=== PATIENT | male | born 1950 | race Caucasian/White ===

== ENCOUNTER 2018-01-08 16:20 | Inpatient (IN) | payer OTHER ==
[~2018-01-08] VITALS: Ht 175.3 cm; Wt 96.8 kg
[2018-01-08 17:04] LABS: BASOPHILS # (AUTO) 0.1 (0.0-0.1); BASOPHILS % 1.1 % (0.0-1.0); EOSINOPHILS # (AUTO) 0.1 (0.0-0.4); EOSINOPHILS % 2.1 % (0.0-6.0); HEMATOCRIT 38.3 % (38.2-49.6); HEMOGLOBIN 12.7 g/dL (14.0-18.0); LYMPHOCYTES # (AUTO) 1.3 (1.0-3.2); LYMPHOCYTES % 27.8 % (18.0-39.1); MEAN CORPUSCULAR HEMOGLOBIN 32.2 pg (28-32); MEAN CORPUSCULAR HGB CONC 33.2 g/dL (31-35); MEAN CORPUSCULAR VOLUME 97.2 fL (81-99); MONOCYTES # (AUTO) 0.3 (0.2-0.8); MONOCYTES % 6.1 % (4.4-11.3); NEUTROPHILS % 62.5 % (38.7-80.0); PLATELET COUNT 233 x10e3/uL (140-360); RED BLOOD COUNT 3.94 x10e6/uL (4.3-5.7); RED CELL DISTRIBUTION WIDTH 12.7 % (11.7-14.4)
[2018-01-08 17:10] LABS: INR 1.03; PARTIAL THROMBOPLASTIN TIME 26.2 seconds (23.8-35.5); PROTHROMBIN TIME 12.7 seconds (11.9-14.5)
[2018-01-08 17:21] LABS: ALBUMIN 3.6 g/dL (3.5-5.0); ANION GAP 13.9 mmol/L (8-16); CALCIUM 9.4 mg/dL (8.4-10.2); CREATININE, SERUM 1.66 mg/dL (0.72-1.25); POTASSIUM 3.9 mmol/L (3.5-5.1)
[2018-01-08 17:26] LABS: BILIRUBIN,URINE NEGATIVE (NEGATIVE); COLOR,URINE RED (YELLOW); KETONES,URINE TRACE (NEGATIVE); LEUKOCYTE ESTERASE ,URINE NEGATIVE (NEGATIVE); NITRITE,URINE NEGATIVE (NEGATIVE); URINE UROBILINOGEN 0.2 mg/dL (0.2 - 1)
[2018-01-08 17:27] LABS: CLARITY,URINE TURBID (CLEAR); PROTEIN,URINE DIPSTICK 2+ (NEGATIVE)
[2018-01-08 17:53] LABS: RBC,URINE >50 /HPF (0-5)
[2018-01-08] MEDS ORDERED: SODIUM CHLORIDE FLUSH 10 ML SYR INJ PRN (21:45)
[2018-01-08] MEDS ORDERED: DEXTROSE 50% SYRINGE 50 ML IV PRN (21:45)
--- NOTE | 2018-01-08 23:04 | Diagnostic Imaging Report ---
EXAM: CT ABDOMEN/PELVIS WO DATE: 01/08/2018 9:41 PM INDICATION: \S\hematuria, evaluate for ureterolithiasis \S\[id number] \S\2210 \S\Y COMPARISON: None TECHNIQUE: The abdomen and pelvis were scanned using a multidetector helical scanner. Coronal and sagittal reformations were obtained. Routine protocol performed. IV Contrast: 0 FINDINGS: Lack of IV contrast decreases sensitivity in evaluating abdominal and pelvic organs. LOWER THORAX: No consolidations LIVER/BILIARY: Liver dome is incompletely imaged. Hepatic steatosis . GALLBLADDER: Unremarkable SPLEEN: Unremarkable PANCREAS: Unremarkable ADRENALS: 8 mm right adrenal myelolipoma. Nodularity of bilateral adrenal glands, likely hyperplasia/underlying adenomas (for example 1.1 cm nodular area on the left, 4 HU, image 30). KIDNEYS: No hydronephrosis or stones. There is a 10 mm exophytic left interpolar renal lesion with peripheral thick calcification. GI TRACT: No distention, wall thickening or evidence of obstruction. Normal appendix. VESSELS: Severe atherosclerotic changes with infrarenal abdominal aortic aneurysm, maximal dimension 3.4 cm, extending into the common iliac arteries (right 1.9 cm, left 1.7 cm) PERITONEUM/RETROPERITONEUM: No free air or fluid LYMPH NODES: No lymphadenopathy REPRODUCTIVE ORGANS/BLADDER: Bladder is decompressed with at least 3 rounded high attenuation lesions/areas measuring 2.8 cm posteriorly, 2.6 cm posteriorly, and 1.3 cm inferiorly. Normal prostate size. SOFT TISSUES: Tiny fat-containing umbilical hernia. BONES: Multilevel degenerative changes with prior lower lumbar decompression. IMPRESSION: 1. Findings most suspicious for multifocal bladder cancer/transitional cell carcinoma. Recommend direct visualization. 2. Indeterminate left interpolar renal lesion. Recommend nonemergent follow-up CT renal mass protocol. Signed by: Dr Connie Thacker MD on 01/08/2018 11:01 PM
[2018-01-09] VITALS: BP 139/65
[2018-01-09 04:00] VITALS: BP 123/58
[2018-01-09 06:57] LABS: BASOPHILS # (AUTO) 0.1 (0.0-0.1); BASOPHILS % 0.7 % (0.0-1.0); EOSINOPHILS # (AUTO) 0.2 (0.0-0.4); EOSINOPHILS % 1.9 % (0.0-6.0); HEMATOCRIT 34.9 % (38.2-49.6); HEMOGLOBIN 11.7 g/dL (14.0-18.0); LYMPHOCYTES # (AUTO) 1.6 (1.0-3.2); LYMPHOCYTES % 19.1 % (18.0-39.1); MEAN CORPUSCULAR HEMOGLOBIN 32.1 pg (28-32); MEAN CORPUSCULAR HGB CONC 33.5 g/dL (31-35); MEAN CORPUSCULAR VOLUME 95.6 fL (81-99); MONOCYTES # (AUTO) 0.7 (0.2-0.8); MONOCYTES % 7.7 % (4.4-11.3); NEUTROPHILS % 69.9 % (38.7-80.0); PLATELET COUNT 230 x10e3/uL (140-360); RED BLOOD COUNT 3.65 x10e6/uL (4.3-5.7); RED CELL DISTRIBUTION WIDTH 12.7 % (11.7-14.4)
[2018-01-09 07:27] LABS: ANION GAP 13.9 mmol/L (8-16); CALCIUM 9.2 mg/dL (8.4-10.2); CREATININE, SERUM 1.72 mg/dL (0.72-1.25); POTASSIUM 3.9 mmol/L (3.5-5.1)
[2018-01-09 08:00] VITALS: BP 107/62
[2018-01-09] MEDS ORDERED: ALBUTEROL/IPRATROPIUM 3 ML NEB NEB PRN (08:00)
[2018-01-09] MEDS ORDERED: INSULIN DETEMIR 100 UNIT/ML PEN SQ ONE (08:30)
[2018-01-09] MEDS ORDERED: MULTIVITAMINS- 12 INJECTION 10 ML, FOLIC ACID MDV 5 MG, THIAMINE HCL INJ 100 MG in SODI... IV ONE (09:00)
--- NOTE | 2018-01-09 09:01 | History and Physical ---
PCP: Dr. Deng Wilcox PRODUCTION SAMPLER: Dr. Jesus Davis CHIEF COMPLAINT: Gross hematuria. HISTORY OF PRESENT ILLNESS: A 67-year-old male basically came to the emergency room because of profound hematuria. Zamora catheter is placed in now. The patient still has blood-tinged urine. CT scan showed possible urinary bladder cancer. Patient is quite little confused at this time. At baseline, the patient was a smoker, quit approximately a few months ago along with alcohol, quit approximately 2 weeks ago. The patient does seem to drink quite significantly. Patient is otherwise stable at this time. He is on antibiotics initiated this morning. The patient is otherwise stable. PAST MEDICAL HISTORY: Including alcoholism, hypertension, smoker, COPD, chronic kidney disease, diabetes. PAST SURGICAL HISTORY: Not available. SOCIAL HISTORY: Patient is a smoker and an alcoholic. He seemed to be confused now, and not much more history regarding social problem. PHYSICAL EXAMINATION: VITAL SIGNS: Temperature is 98, blood pressure 123/58, pulse rate is 92, respirations 20. GENERAL: The patient is confused. He is moving all extremities. There is no focal deficit. HEENT: Normocephalic, atraumatic. Anicteric. Poor dentition. NECK: Supple. No JVD. PULMONARY: Diminished breath sounds with some rhonchi. CARDIOVASCULAR: S1 and S2. Regular rate and rhythm. ABDOMEN: Soft, non-distention. : Zamora catheter in place. EXTREMITIES: No cyanosis or edema. NEUROLOGIC: No gross focal deficit, but does seem to be confused. LABORATORY: Sodium is 140, potassium 3.9, chloride 106, bicarb 24, BUN 40, creatinine 1.7, glucose 364. WBC is 8.5, hemoglobin 11.7, hematocrit 35, platelets 230,000. PT, INR is 12.7 and 1.03. IMPRESSION: 1. Gross hematuria. 2. Possible urinary bladder cancer. 3. Smoker, alcoholism. 4. Baseline diabetes, high blood sugar. 5. Chronic kidney disease. 6. Hypertension. PLAN: Rocephin 1 g q.12. Consultation with Dr. Jesus Davis, possible cystoscopy. Insulin sliding scale coverage, blood pressure control, DuoNeb, DT prevention, and banana bag. IV fluid support. Job#: [id number]
[2018-01-09] MEDS: FAMOTIDINE 20 MG/2 ML VIAL IV SCH ×2 (10:06→17:05)
[2018-01-09] MEDS: THIAMINE HCL 100 MG TAB PO SCH (10:06)
[2018-01-09] MEDS: CEFTRIAXONE SOD 1 GM VIAL IV SCH ×2 (10:06→20:57)
[2018-01-09] MEDS: CYANOCOBALAMIN INJ 1,000 MCG/ML VIAL IM SCH (10:06)
[2018-01-09] MEDS: FOLIC ACID 1 MG TAB PO SCH (10:06)
[2018-01-09] MEDS: INSULIN REGULAR, HUMAN 100 UNIT/1 ML 3ML VIAL SQ SCH ×4 (10:11→22:00)
[2018-01-09] MEDS ORDERED: FLOMAX0.4 MG PO (11:34)
[2018-01-09] MEDS ORDERED: LEVOTHYROXINE50 MCG PO (11:34)
[2018-01-09] MEDS ORDERED: GLIMEPIRIDE2 MG PO (11:34)
[2018-01-09] MEDS ORDERED: LOVASTATIN40 MG PO (11:34)
[2018-01-09] MEDS ORDERED: FENOFIBRATE145 MG PO (11:34)
[2018-01-09] MEDS ORDERED: FISH OIL 1,2001 EACH PO (11:34)
[2018-01-09] MEDS ORDERED: LOSARTAN-HCTZ1 EAC1 PO (11:34)
[2018-01-09] MEDS ORDERED: MULTI-VITAMIN1 EACH PO (11:34)
[2018-01-09] MEDS ORDERED: FERROUS SULFAT325 MG PO (11:34)
[2018-01-09] MEDS ORDERED: CYMBALTA30 MG PO (11:34)
[2018-01-09] MEDS ORDERED: ASPIRIN81 MG PO (11:34)
[2018-01-09 12:31] VITALS: BP 153/69
[2018-01-09 16:00] VITALS: BP 118/58
[2018-01-09] MEDS: MORPHINE SULFATE 2 MG/ML SYR IV PRN (16:40)
[2018-01-09 20:00] VITALS: BP 122/59
[2018-01-09] MEDS: INSULIN DETEMIR 100 UNIT/ML PEN SQ SCH (22:00)
[2018-01-10] VITALS (7 sets, daily range): BP systolic 111–147; BP diastolic 56–83
[2018-01-10 07:44] LABS: BASOPHILS # (AUTO) 0.1 (0.0-0.1); BASOPHILS % 1.1 % (0.0-1.0); EOSINOPHILS # (AUTO) 0.2 (0.0-0.4); EOSINOPHILS % 2.6 % (0.0-6.0); HEMOGLOBIN 11.2 g/dL (14.0-18.0); LYMPHOCYTES # (AUTO) 1.9 (1.0-3.2); MEAN CORPUSCULAR HGB CONC 32.9 g/dL (31-35); MEAN CORPUSCULAR VOLUME 97.1 fL (81-99); MONOCYTES # (AUTO) 0.7 (0.2-0.8); MONOCYTES % 9.9 % (4.4-11.3); NEUTROPHILS # (AUTO) 4.4 (2.1-6.9); NEUTROPHILS % 59.7 % (38.7-80.0); PLATELET COUNT 208 x10e3/uL (140-360); RED CELL DISTRIBUTION WIDTH 13.1 % (11.7-14.4)
[2018-01-10 08:07] LABS: ANION GAP 15.9 mmol/L (8-16); CALCIUM 8.9 mg/dL (8.4-10.2); CREATININE, SERUM 1.9 mg/dL (0.72-1.25); POTASSIUM 3.9 mmol/L (3.5-5.1)
[2018-01-10] MEDS: INSULIN REGULAR, HUMAN 100 UNIT/1 ML 3ML VIAL SQ SCH ×4 (08:37→20:49)
[2018-01-10] MEDS: FOLIC ACID 1 MG TAB PO SCH (08:37)
[2018-01-10] MEDS: CYANOCOBALAMIN INJ 1,000 MCG/ML VIAL IM SCH (08:37)
[2018-01-10] MEDS: THIAMINE HCL 100 MG TAB PO SCH (08:37)
[2018-01-10] MEDS: FAMOTIDINE 20 MG/2 ML VIAL IV SCH ×2 (08:37→16:48)
[2018-01-10] MEDS: CEFTRIAXONE SOD 1 GM VIAL IV SCH ×2 (08:37→20:35)
--- NOTE | 2018-01-10 09:17 | Consultation ---
DATE OF CONSULTATION: January 09, 2018 UROLOGY CONSULTATION CONSULTATION CALLED BY: Dr. Vang CHIEF UROLOGICAL COMPLAINT AND REASON FOR CONSULTATION: Bladder mass, gross hematuria. HISTORY OF PRESENT ILLNESS: Mr. Aldana is a 67-year-old male who was in his normal state of health until 1 day prior to admission when he began experiencing profuse gross hematuria. Has been seeing Dr. Becker for chronic renal failure. Denied dysuria. PAST MEDICAL HISTORY: As above. Diabetes mellitus, chronic renal failure. MEDICATIONS: Please see MAR. ALLERGIES: NKDA. SOCIAL HISTORY: Denies smoking, no drinking. FAMILY HISTORY: Denied urologic stones or malignancies. REVIEW OF SYSTEMS: Noncontributory other than problems mentioned above for 12 organ systems. PHYSICAL EXAMINATION: GENERAL: Elderly male, in no acute distress. VITAL SIGNS: Temperature 96.0, pulse 92, respirations 16, blood pressure 123/68. HEENT: Sclerae anicteric. NECK: Supple. BACK: Without costovertebral angle tenderness bilaterally. ABDOMEN: Soft. It is nontender, it is nondistended. There is no palpable mass. No palpable hernias. No palpable inguinal lymphadenopathy. : Normal male external genitalia. EXTREMITIES: Without edema. NEURO: Moves all 4 extremities. PSYCH: Alert. Mood appropriate. SKIN: Intact. Normal color. PERTINENT LABORATORY DATA: CT scan revealing 8 mm right adrenal myelolipoma, a 10 mm left exophytic calcification and lesion, abdominal aortic aneurysm of 3.4 cm, a bladder mass of 2.8 cm, a bladder mass of 2.6 cm, and the bladder mass of 1.3 cm. Sodium 140, potassium 3.9, chloride 106, bicarb 24, BUN 40, creatinine 1.72, glucose 364. Hemoglobin 12, hematocrit 38, platelet count 233,000, white cell count 4740. Urinalysis greater than 50 reds, 2+ protein, 3+ glucose. IMPRESSION: 1. Glycosuria. 2. Proteinuria. 3. Gross hematuria. 4. Bladder masses. 5. Renal mass. 6. Abdominal aortic aneurysm. 7. Right adrenal mass. 8. Chronic renal failure. PLAN: The patient is on continuous irrigation, will continue this. Will make sure there is no evidence of infection. Patient will need a cystoscopy electively. As the patient had been taking blood thinning agents at home, will prefer to wait at least a few days to give some of the platelets a chance to . Thank you for allowing me to participate in the care of your patient. Will be happy to follow along with you. Job#: [id number] cc:ADALID VANG MD
[2018-01-10] MEDS: INSULIN DETEMIR 100 UNIT/ML PEN SQ SCH (20:49)
[2018-01-11] VITALS (7 sets, daily range): BP systolic 113–159; BP diastolic 58–72
[2018-01-11] MEDS: ONDANSETRON HCL INJ 2 MG/ML VIAL IV PRN ×2 (01:18→15:06)
[2018-01-11] MEDS: MORPHINE SULFATE 2 MG/ML SYR IV PRN ×2 (01:19→15:06)
[2018-01-11] MEDS: FAMOTIDINE 20 MG/2 ML VIAL IV SCH ×2 (08:14→16:45)
[2018-01-11] MEDS: CEFTRIAXONE SOD 1 GM VIAL IV SCH ×2 (08:14→21:00)
[2018-01-11] MEDS: CYANOCOBALAMIN INJ 1,000 MCG/ML VIAL IM SCH (08:14)
[2018-01-11] MEDS: INSULIN REGULAR, HUMAN 100 UNIT/1 ML 3ML VIAL SQ SCH ×4 (08:14→21:30)
[2018-01-11] MEDS: THIAMINE HCL 100 MG TAB PO SCH (15:06)
[2018-01-11] MEDS: FOLIC ACID 1 MG TAB PO SCH (15:06)
[2018-01-11] MEDS: INSULIN DETEMIR 100 UNIT/ML PEN SQ SCH (21:30)
[2018-01-12] VITALS (7 sets, daily range): BP systolic 116–151; BP diastolic 57–70
[2018-01-12 07:29] LABS: BASOPHILS # (AUTO) 0.1 (0.0-0.1); BASOPHILS % 1.2 % (0.0-1.0); EOSINOPHILS # (AUTO) 0.2 (0.0-0.4); EOSINOPHILS % 3.1 % (0.0-6.0); HEMATOCRIT 33.4 % (38.2-49.6); HEMOGLOBIN 11.2 g/dL (14.0-18.0); LYMPHOCYTES # (AUTO) 1.2 (1.0-3.2); MEAN CORPUSCULAR HEMOGLOBIN 32.3 pg (28-32); MEAN CORPUSCULAR HGB CONC 33.5 g/dL (31-35); MEAN CORPUSCULAR VOLUME 96.3 fL (81-99); MONOCYTES # (AUTO) 0.5 (0.2-0.8); MONOCYTES % 9.2 % (4.4-11.3); NEUTROPHILS # (AUTO) 3.2 (2.1-6.9); NEUTROPHILS % 62.1 % (38.7-80.0); PLATELET COUNT 218 x10e3/uL (140-360); RED BLOOD COUNT 3.47 x10e6/uL (4.3-5.7); RED CELL DISTRIBUTION WIDTH 12.6 % (11.7-14.4)
[2018-01-12] MEDS: INSULIN REGULAR, HUMAN 100 UNIT/1 ML 3ML VIAL SQ SCH ×4 (07:30→21:22)
[2018-01-12 07:41] LABS: ANION GAP 14.9 mmol/L (8-16); CALCIUM 9.4 mg/dL (8.4-10.2); CREATININE, SERUM 1.92 mg/dL (0.72-1.25); POTASSIUM 3.9 mmol/L (3.5-5.1)
[2018-01-12] MEDS: CEFTRIAXONE SOD 1 GM VIAL IV SCH ×2 (08:53→21:22)
[2018-01-12] MEDS: FAMOTIDINE 20 MG/2 ML VIAL IV SCH ×2 (08:53→16:08)
[2018-01-12] MEDS: FOLIC ACID 1 MG TAB PO SCH (09:00)
[2018-01-12] MEDS: THIAMINE HCL 100 MG TAB PO SCH (09:00)
[2018-01-12] MEDS: ONDANSETRON HCL INJ 2 MG/ML VIAL IV PRN (10:12)
[2018-01-12] MEDS: MORPHINE SULFATE 2 MG/ML SYR IV PRN (10:13)
[2018-01-12] MEDS ORDERED: PROPOFOL IV EMULSION 10 MG/ML 20 ML VIAL ONE (13:34)
[2018-01-12] MEDS ORDERED: SEVOFLURANE INHAL SOLN 250 ML PEN BTL ONE (13:34)
[2018-01-12] MEDS ORDERED: LIDOCAINE HCL 2% LOCAL INJ 5 ML SDV VIAL INJ ONE (13:34)
[2018-01-12] MEDS ORDERED: ONDANSETRON HCL INJ 2 MG/ML VIAL ONE (13:34)
[2018-01-12] MEDS ORDERED: DEXAMETHASONE SOD PHOS INJ 4 MG/ML VIAL ONE (13:34)
[2018-01-12] MEDS ORDERED: FENTANYL CITRATE/PF 100MCG/2 ML INJ ONE ×2 (14:43→18:44)
[2018-01-12] MEDS ORDERED: MIDAZOLAM HCL 2 MG/2 ML VIAL ONE (14:43)
[2018-01-12] MEDS ORDERED: BELLADONNA/OPIUM 60 MG SUPP PR ONE (17:03)
[2018-01-12] MEDS ORDERED: IOPAMIDOL 610MG/1ML 300 MG/ML VIAL IV ONE (17:04)
[2018-01-12] MEDS ORDERED: PHENAZOPYRIDINE HCL 100 MG TAB PO ONE (18:30)
[2018-01-12] MEDS: INSULIN DETEMIR 100 UNIT/ML PEN SQ SCH (21:22)
[2018-01-13] VITALS: BP 112/57
[2018-01-13 04:00] VITALS: BP 142/61
[2018-01-13 07:20] LABS: BASOPHILS # (AUTO) 0.1 (0.0-0.1); BASOPHILS % 0.9 % (0.0-1.0); EOSINOPHILS % 0.1 % (0.0-6.0); HEMATOCRIT 33.9 % (38.2-49.6); LYMPHOCYTES # (AUTO) 1.1 (1.0-3.2); LYMPHOCYTES % 15.6 % (18.0-39.1); MEAN CORPUSCULAR HGB CONC 32.4 g/dL (31-35); MEAN CORPUSCULAR VOLUME 98.5 fL (81-99); MONOCYTES # (AUTO) 0.4 (0.2-0.8); NEUTROPHILS # (AUTO) 5.3 (2.1-6.9); NEUTROPHILS % 77.1 % (38.7-80.0); PLATELET COUNT 238 x10e3/uL (140-360); RED BLOOD COUNT 3.44 x10e6/uL (4.3-5.7); RED CELL DISTRIBUTION WIDTH 12.7 % (11.7-14.4)
[2018-01-13 07:41] VITALS: BP 119/58
[2018-01-13 07:50] LABS: ANION GAP 13.3 mmol/L (8-16); CALCIUM 8.8 mg/dL (8.4-10.2); CREATININE, SERUM 1.94 mg/dL (0.72-1.25); POTASSIUM 4.3 mmol/L (3.5-5.1)
[2018-01-13] MEDS: MORPHINE SULFATE 2 MG/ML SYR IV PRN ×3 (08:59→20:31)
[2018-01-13] MEDS: FAMOTIDINE 20 MG/2 ML VIAL IV SCH ×2 (09:08→18:01)
[2018-01-13] MEDS: INSULIN REGULAR, HUMAN 100 UNIT/1 ML 3ML VIAL SQ SCH ×4 (09:08→21:15)
[2018-01-13] MEDS: CEFTRIAXONE SOD 1 GM VIAL IV SCH ×2 (09:08→21:34)
[2018-01-13] MEDS: THIAMINE HCL 100 MG TAB PO SCH (09:08)
[2018-01-13] MEDS: FOLIC ACID 1 MG TAB PO SCH (09:08)
[2018-01-13 12:00] VITALS: BP 151/90
[2018-01-13] MEDS: TRAMADOL HCL 50 MG TAB PO PRN ×2 (12:31→23:57)
[2018-01-13 15:51] VITALS: BP 138/65
[2018-01-13 20:00] VITALS: BP 188/77
[2018-01-13] MEDS: INSULIN DETEMIR 100 UNIT/ML PEN SQ SCH (21:15)
[2018-01-14] VITALS (8 sets, daily range): BP systolic 116–158; BP diastolic 60–68
[2018-01-14] MEDS: MORPHINE SULFATE 2 MG/ML SYR IV PRN ×4 (03:37→23:23)
[2018-01-14] MEDS: TRAMADOL HCL 50 MG TAB PO PRN ×2 (08:10→20:59)
[2018-01-14] MEDS: FOLIC ACID 1 MG TAB PO SCH (08:34)
[2018-01-14] MEDS: CEFTRIAXONE SOD 1 GM VIAL IV SCH ×2 (08:34→20:59)
[2018-01-14] MEDS: FAMOTIDINE 20 MG/2 ML VIAL IV SCH ×2 (08:34→16:28)
[2018-01-14] MEDS: INSULIN REGULAR, HUMAN 100 UNIT/1 ML 3ML VIAL SQ SCH ×4 (08:35→21:02)
[2018-01-14] MEDS: POLYETHYLENE GLYCOL 3350 17 GM PACK PO SCH (08:35)
[2018-01-14] MEDS: THIAMINE HCL 100 MG TAB PO SCH (08:35)
[2018-01-14] MEDS: INSULIN DETEMIR 100 UNIT/ML PEN SQ SCH (21:02)
[2018-01-15] VITALS (9 sets, daily range): BP systolic 114–161; BP diastolic 60–74
[2018-01-15] MEDS: MORPHINE SULFATE 2 MG/ML SYR IV PRN ×5 (04:12→21:30)
[2018-01-15 07:13] LABS: BASOPHILS # (AUTO) 0.1 (0.0-0.1); BASOPHILS % 0.8 % (0.0-1.0); EOSINOPHILS # (AUTO) 0.2 (0.0-0.4); EOSINOPHILS % 2.8 % (0.0-6.0); HEMATOCRIT 33.9 % (38.2-49.6); HEMOGLOBIN 11.3 g/dL (14.0-18.0); LYMPHOCYTES # (AUTO) 1.2 (1.0-3.2); LYMPHOCYTES % 20.2 % (18.0-39.1); MEAN CORPUSCULAR HEMOGLOBIN 32.4 pg (28-32); MEAN CORPUSCULAR HGB CONC 33.3 g/dL (31-35); MEAN CORPUSCULAR VOLUME 97.1 fL (81-99); MONOCYTES # (AUTO) 0.5 (0.2-0.8); MONOCYTES % 8.6 % (4.4-11.3); NEUTROPHILS # (AUTO) 4.1 (2.1-6.9); NEUTROPHILS % 67.3 % (38.7-80.0); PLATELET COUNT 243 x10e3/uL (140-360); RED BLOOD COUNT 3.49 x10e6/uL (4.3-5.7); RED CELL DISTRIBUTION WIDTH 12.6 % (11.7-14.4)
[2018-01-15] MEDS: INSULIN REGULAR, HUMAN 100 UNIT/1 ML 3ML VIAL SQ SCH ×4 (07:30→21:00)
[2018-01-15 07:51] LABS: ANION GAP 12.7 mmol/L (8-16); CALCIUM 8.9 mg/dL (8.4-10.2); CREATININE, SERUM 1.76 mg/dL (0.72-1.25); POTASSIUM 3.7 mmol/L (3.5-5.1)
[2018-01-15] MEDS: POLYETHYLENE GLYCOL 3350 17 GM PACK PO SCH (09:26)
[2018-01-15] MEDS: CEFTRIAXONE SOD 1 GM VIAL IV SCH ×2 (09:26→21:14)
[2018-01-15] MEDS: THIAMINE HCL 100 MG TAB PO SCH (09:26)
[2018-01-15] MEDS: FAMOTIDINE 20 MG/2 ML VIAL IV SCH ×2 (09:26→16:45)
[2018-01-15] MEDS: FOLIC ACID 1 MG TAB PO SCH (09:26)
[2018-01-15] MEDS: CHLORDIAZEPOXIDE HCL 10 MG CAP PO PRN ×2 (13:15→17:33)
[2018-01-15] MEDS: TRAMADOL HCL 50 MG TAB PO PRN (16:45)
[2018-01-15] MEDS: INSULIN DETEMIR 100 UNIT/ML PEN SQ SCH (21:14)
[2018-01-16] VITALS (7 sets, daily range): BP systolic 126–164; BP diastolic 60–70
[2018-01-16] MEDS: MORPHINE SULFATE 2 MG/ML SYR IV PRN (01:29)
[2018-01-16] MEDS: INSULIN REGULAR, HUMAN 100 UNIT/1 ML 3ML VIAL SQ SCH ×4 (08:25→22:11)
[2018-01-16] MEDS: FOLIC ACID 1 MG TAB PO SCH (08:25)
[2018-01-16] MEDS: FAMOTIDINE 20 MG/2 ML VIAL IV SCH ×2 (08:25→16:52)
[2018-01-16] MEDS: THIAMINE HCL 100 MG TAB PO SCH (08:25)
[2018-01-16] MEDS: CEFTRIAXONE SOD 1 GM VIAL IV SCH ×3 (08:25→22:00)
[2018-01-16] MEDS: POLYETHYLENE GLYCOL 3350 17 GM PACK PO SCH (08:25)
[2018-01-16] MEDS ORDERED: BELLADONNA/OPIUM 60 MG SUPP PR PRN (08:45)
[2018-01-16] MEDS: OXYBUTYNIN CHLORIDE 5 MG TAB PO SCH ×3 (09:03→22:00)
[2018-01-16] MEDS: INSULIN DETEMIR 100 UNIT/ML PEN SQ SCH (22:11)
[2018-01-17] VITALS: BP 157/72
[2018-01-17 01:20] VITALS: BP 157/72
[2018-01-17 04:00] VITALS: BP 151/64
[2018-01-17] MEDS: INSULIN REGULAR, HUMAN 100 UNIT/1 ML 3ML VIAL SQ SCH ×3 (07:30→16:30)
[2018-01-17 08:00] VITALS: BP 135/60
[2018-01-17] MEDS: POLYETHYLENE GLYCOL 3350 17 GM PACK PO SCH (09:39)
[2018-01-17] MEDS: OXYBUTYNIN CHLORIDE 5 MG TAB PO SCH ×2 (09:39→16:00)
[2018-01-17] MEDS: CEFUROXIME AXETIL 250 MG TAB PO SCH ×2 (09:39→16:28)
[2018-01-17] MEDS: FOLIC ACID 1 MG TAB PO SCH (09:39)
[2018-01-17] MEDS: THIAMINE HCL 100 MG TAB PO SCH (09:39)
[2018-01-17 12:10] VITALS: BP 169/76
[2018-01-17] MEDS ORDERED: TYLENOL WITH C1 EACH PO (16:20)
[2018-01-17] MEDS ORDERED: PYRIDIUM200 MG (16:22)
--- NOTE | 2018-01-17 18:43 | Discharge Summary ---
PRIMARY CARE PHYSICIAN: Dr. Deng Wilcox. STRUCTURES TECHNICIAN: Dr. Jesus Davis. FINAL DIAGNOSES: 1. 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 2. Status post cystoscopy with tumor removal as mentioned above. 3. Status post hematuria. 4. Zamora catheter in place. 5. Multiple chronic baseline problems. SUMMARY: Patient is a 67-year-old male who came in with gross hematuria. CT scan showed urinary bladder tumor. Patient subsequently received antibiotics. Zamora catheter placement. The patient underwent cystoscopy. The final pathology as mentioned above. He has papillary urothelial carcinoma invasive high-grade with presence of thick muscle fibers. The patient's urinary bladder blood clot that was removed. Necrotic cellular debris that was subsequently removed. In the clot, there was no viable tumor cell in the blood clot that was removed. The patient discharged home with pain medication and antibiotics. He will resume his home medication except for aspirin. The patient to follow with Dr. Davis next week. He will follow up with Dr. Deng Wilcox as soon as he can get an appointment. Patient is stable. Rolling walker and home health have been arranged. The patient is stable for discharge home today. Job#: [id number]
--- NOTE | 2018-03-18 07:57 | Operative Report ---
DATE OF PROCEDURE: January 12, 2018 PREOPERATIVE DIAGNOSIS: Gross hematuria. POSTOPERATIVE DIAGNOSES 1. Gross hematuria. 2. Clot retention. 3. Large bladder tumor, posterior wall. OPERATIONS PERFORMED 1. Cystourethroscopy with evacuation of blood clots (separate procedure performed for the diagnosis of blood clots). 2. Cystourethroscopy with bilateral ureteral catheterization and retrograde ureteropyelography (separate procedure performed to complete hematuria workup). 3. Interpretation of retrograde ureteropyelography. 4. Supervision of fluoroscopy. No radiologist present. 5. Cystourethroscopy with transurethral resection of the very large posterior wall bladder tumor. ANESTHESIA: General. COMPLICATIONS: None. CLINICAL SUMMARY: Please refer to the consultation dictation from this hospitalization, as well as the hospital chart that is voluminous. OPERATIVE PROCEDURE IN DETAIL: Informed consent was verified. Arthur Aldana was properly identified and taken to the operating room and placed on the cystoscopy table in the supine position. Anesthesia was uneventfully begun. Patient was then carefully and gently repositioned in the dorsal lithotomy position with all pressure points well-padded. His genitalia were prepared and draped in the usual sterile fashion. The 22.5-Gabonese cystoscope sheath with a visual obturator in place was atraumatically inserted into the patient's urethra. It was guided down an unremarkable urethra past a normal sphincter, through the prostate bed which was significant for obstructive BPH seen in the patient's bladder. We then identified blood clots. These blood clots were evacuated. Once we evacuated all the blood clots, careful panendoscopy revealed a very large bladder tumor in the posterior bladder wall. Heavy trabeculation were noted. Normally positioned and configured ureteral orifices were identified. An 8-Gabonese catheter was used to cannulate each ureter. Retrograde ureteropyelography was performed. Interpretation of retrograde ureteropyelography. Contrast was instilled in a retrograde fashion bilaterally. There were no tumors, no stones and no diverticula. Unobstructed drainage was observed bilaterally fluoroscopically. The cystoscope was withdrawn. The resectoscope was placed. Transurethral resection of the bladder tumor was performed. Loop electrodes were then utilized to resect the tumor down to its base. Once the entire tumor was resected, as well as tumescent fibers, no additional tumors were identified. Pinpoint electrocautery was utilized to achieve hemostasis. Once this was confirmed, all chips were evacuated. The resectoscope was withdrawn. Zamora catheter was placed. It was irrigated to and fro to ensure it worked properly. The patient was uneventfully reserved from anesthesia, and taken to the recovery room in stable condition. There were no complications to the procedure. The patient tolerated the procedure well. Estimated blood loss was minimal. Explicit postoperative instructions were given. Will follow the patient up in the office. Job#: [id number] RI cc:KAMERON VILLAFANA MD
== END 2018-01-17 16:30 | DRG 670 ==
LOC: ER 16:20 → ERHOLD 21:49 → MED/SURG 01-09 00:38
PROVIDERS: ADMIT Internal Medicine; ATTEND Internal Medicine
PROC: 0TBB8ZX Excision of Bladder, Via Natural or Artificial Opening Endoscopic, Diagnostic (ICD-10-PCS; 2018-01-12)
PROC: 0T9B8ZX Drainage of Bladder, Via Natural or Artificial Opening Endoscopic, Diagnostic (ICD-10-PCS; 2018-01-12)
PROC: 0T788ZZ Dilation of Bilateral Ureters, Via Natural or Artificial Opening Endoscopic (ICD-10-PCS; 2018-01-12)
PROC: 0TCB8ZZ Extirpation of Matter from Bladder, Via Natural or Artificial Opening Endoscopic (ICD-10-PCS; 2018-01-12)
PROC: 0TBB8ZZ Excision of Bladder, Via Natural or Artificial Opening Endoscopic (ICD-10-PCS; principal; 2018-01-12 14:00)
DX: C67.9 Malignant neoplasm of bladder, unspecified (principal); E11.65 Type 2 diabetes mellitus with hyperglycemia; I12.9 Hypertensive chronic kidney disease with stage 1 through stage 4 chronic kidney disease, or unspecified chronic kidney disease; E27.9 Disorder of adrenal gland, unspecified; D64.9 Anemia, unspecified; F17.210 Nicotine dependence, cigarettes, uncomplicated; N18.9 Chronic kidney disease, unspecified; R31.0 Gross hematuria; R80.9 Proteinuria, unspecified; F10.20 Alcohol dependence, uncomplicated; I71.4 Abdominal aortic aneurysm, without rupture
CPT/HCPCS: 36415; 74176; 74420; 80048; 80053; 81001; 82948; 83036; 84443; 85025; 85610; 85730; 87086; 88305; 97139; 99284; J0696; J1100; J2001; J2250; J2270; J2405; J3411; J3420; J7030

== ENCOUNTER 2018-01-18 02:10 | Inpatient (IN) | payer OTHER ==
[~2018-01-18] VITALS: Ht 175.3 cm; Wt 92.7 kg
[2018-01-18] VITALS (7 sets, daily range): BP systolic 142–180; BP diastolic 70–96
[~2018-01-18 02:10] MED LIST: ASPIRIN81 MG PO; CYMBALTA30 MG PO; FENOFIBRATE145 MG PO; FERROUS SULFAT325 MG PO; FISH OIL 1,2001 EACH PO; FLOMAX0.4 MG PO; GLIMEPIRIDE2 MG PO; LEVOTHYROXINE50 MCG PO; LOSARTAN-HCTZ1 EAC1 PO; LOVASTATIN40 MG PO; MULTI-VITAMIN1 EACH PO; PYRIDIUM200 MG; TYLENOL WITH C1 EACH PO
--- OUTSIDE RECORDS SUMMARY | 2018-01-18 02:13 | XMS REPORT | Continuity of Care Document ---
Author Author [facility] Organization [facility] Address [address] [place] [address] Phone Unavailable Care Team Providers Care Gasket Supervisor Name Role Phone KAMERON VILLAFANA MD PCP Insurance Providers Guarantor Tyler Aldana Address [address] [place] [address] Email [email or web address] Payer [place] Policy Number [id number] Subscriber's Name Tyler Aldana Relationship 18 Self / Same As Patient Group Number [id number] Group Name [employer] - [employer] Advance Directives Directive Response Recorded Date/Time Does the patient have an advance directive? No 04/27/09 6:59am If yes, is advance directive on file with [facility]? No 04/27/09 6:59am If not on file with [facility] will patient provide a copy? No 01/08/18 5:05pm Do you have a Directive to Physician? No 01/08/18 5:05pm Do you have a Medical Power of Primer Powder Blender Wet? No 01/08/18 5:05pm Do you have an out of hospital Do Not Resuscitate Order? No 01/08/18 5:05pm Do you have any special needs we should be aware of? No 01/08/18 5:05pm Do you have a support person here with you today? Yes 01/08/18 5:05pm Did patient receive Notice of Privacy Practices? Yes 01/08/18 5:05pm Did patient receive patient rights and responsibilities? Yes 01/08/18 5:05pm Problems Medical Problem Onset Date Status Hematuria Unknown Medications Current Home Medications Medication Dose Units Route Directions Days Qty Instructions Start Date Acetaminophen With Codeine (Tylenol With Codeine #3 Tablet) 1 Each Tablet 300 Mg Oral Every 4 Hours 50 Tab Duloxetine Hcl (Cymbalta) 30 Mg Capsule.dr 60 Mg Oral Daily 30 Cap Fenofibrate Nanocrystallized (Fenofibrate) 145 Mg Tablet 145 Mg Oral Daily Ferrous Sulfate 325 Mg Tablet 325 Mg Oral Daily Fish Oil/Dha/Epa (Fish Oil 1,200 Mg Fish Oil) 1 Each Capsule 1,200 Mg Oral Daily Glimepiride 2 Mg Tablet 2 Mg Oral Daily Levothyroxine Sodium 50 Mcg Tablet 25 Mcg Oral Daily 30 Tab Losartan/Hydrochlorothiazide (Losartan-Hctz 100-25 Mg Tab) 1 Each Tablet 100 Mg Oral Daily Lovastatin 40 Mg Tablet 40 Mg Oral Daily THERAPEUTICALLY SUBSTITUTED WITH SIMVASTATIN 20MG Multivitamin (Multi-Vitamin Daily) 1 Each Tablet 100 Mg Oral Daily Phenazopyridine Hcl (Pyridium) 200 Mg Tablet Three Times A Day 50 Tamsulosin Hcl (Flomax*) 0.4 Mg Cap 0.4 Mg Oral Daily 30 Cap Past Home Medications Medication Directions Ordered Status Aspirin 81 Mg Tab.chew, 81 Mg Oral Daily Discontinued Social History Smoking Status Start Date Stop Date Never Smoker Hospital Discharge Instructions No hospital discharge instruction information available. Plan of Care Discharge Date 01/17/18 4:30pm Disposition HOME, SELF-CARE Instructions/Education Provided Zamora Catheter Care Prescriptions See Medication Section Additional Instructions/Education "Follow up with next week." "Follow up with Dr. Villafana next week." Zamora care per instructions. Activity as tolerated. Functional Status Query Response Date Recorded FUNCTIONAL STATUS ` January 13, 2018 2:48pm Assistive Devices Rolling Walker January 10, 2018 9:59am Ambulation Ability Total Assistance 2 person assist January 10, 2018 9:59am Toileting Ability Independent January 17, 2018 8:00am Allergies, Adverse Reactions, Alerts No known allergies. Immunizations No immunization information available. Vital Signs Acute Vital Signs Vital Response Date/Time Temperature (Fahrenheit) 96.1 degrees F (97.6 - 99.5) 01/17/2018 12:10pm Pulse Pulse Rate (adult) 60 bpm (60 - 90) 01/17/2018 12:10pm Respiratory Rate 19 bpm (12 - 24) 01/17/2018 12:10pm Blood Pressure 169/76 mm Hg 01/17/2018 12:10pm Height 5 ft 9 in 01/08/2018 4:20pm Weight 213.50 lb 01/15/2018 7:44am Body Mass Index 31.5 kg/m^2 01/15/2018 7:44am Results Laboratory Results Test Name Result Units Flags Reference Collection Date/Time Result Date/ Time Comments White Blood Count 6.04 x10e3/uL 4.8-10.8 01/15/2018 6:47am 01/15/2018 7 :24am Red Blood Count 3.49 x10e6/uL L 4.3-5.7 01/15/2018 6:47am 01/15/2018 7: 24am Hemoglobin 11.3 g/dL L 14.0-18.0 01/15/2018 6:47am 01/15/2018 7:24am Hematocrit 33.9 % L 38.2-49.6 01/15/2018 6:47am 01/15/2018 7:24am Mean Corpuscular Volume 97.1 fL 81-99 01/15/2018 6:47am 01/15/2018 7: 24am Mean Corpuscular Hemoglobin 32.4 pg H 28-32 01/15/2018 6:47am 2017 7:24am Mean Corpuscular Hemoglobin Concent 33.3 g/dL 31-35 01/15/2018 6:47am 01/15/2018 7:24am Red Cell Distribution Width 12.6 % 11.7-14.4 01/15/2018 6:47am 2017 7:24am Platelet Count 243 x10e3/uL 140-360 01/15/2018 6:47am 01/15/2018 7: 24am Neutrophils (%) (Auto) 67.3 % 38.7-80.0 01/15/2018 6:47am 01/15/2018 7: 24am Lymphocytes (%) (Auto) 20.2 % 18.0-39.1 01/15/2018 6:47am 01/15/2018 7: 24am Monocytes (%) (Auto) 8.6 % 4.4-11.3 01/15/2018 6:47am 01/15/2018 7: 24am Eosinophils (%) (Auto) 2.8 % 0.0-6.0 01/15/2018 6:47am 01/15/2018 7: 24am Basophils (%) (Auto) 0.8 % 0.0-1.0 01/15/2018 6:47am 01/15/2018 7:24am IM GRANULOCYTES % 0.3 % 0.0-1.0 01/15/2018 6:47am 01/15/2018 7:24am Neutrophils # (Auto) 4.1 2.1-6.9 01/15/2018 6:47am 01/15/2018 7:24am Lymphocytes # (Auto) 1.2 1.0-3.2 01/15/2018 6:47am 01/15/2018 7:24am Monocytes # (Auto) 0.5 0.2-0.8 01/15/2018 6:47am 01/15/2018 7:24am Eosinophils # (Auto) 0.2 0.0-0.4 01/15/2018 6:47am 01/15/2018 7:24am Basophils # (Auto) 0.1 0.0-0.1 01/15/2018 6:47am 01/15/2018 7:24am Absolute Immature Granulocyte (auto 0.02 x10e3/uL 0-0.1 01/15/2018 6: 47am 01/15/2018 7:24am Prothrombin Time 12.7 seconds 11.9-14.5 01/08/2018 4:30pm 01/08/2018 5: 12pm Prothromb Time International Ratio 1.03 01/08/2018 4:30pm 2017 5:12pm Oral Anticoagulant Therapy INR Values: 1. Low Intensity Therapy 1.5 - 2.0 2. Moderate Intensity Therapy 2.0 - 3.0 3. High Intensity Therapy(1) 2.5 - 3.5 4. High Intensity Therapy(2) 3.0 - 4.0 5. Panic Value INR > 5.0 Activated Partial Thromboplast Time 26.2 seconds 23.8-35.5 01/08/2018 4: 30pm 01/08/2018 5:12pm Urine Color RED H YELLOW 01/08/2018 5:15pm 01/08/2018 5:27pm Urine Clarity TURBID H CLEAR 01/08/2018 5:15pm 01/08/2018 5:27pm Urine Specific Epworth 1.020 1.010-1.025 01/08/2018 5:15pm 2017 5:27pm Urine pH 5 5 - 7 01/08/2018 5:15pm 01/08/2018 5:27pm Urine Leukocyte Esterase NEGATIVE NEGATIVE 01/08/2018 5:15pm 2017 5:27pm Urine Nitrite NEGATIVE NEGATIVE 01/08/2018 5:15pm 01/08/2018 5:27pm Urine Protein 2+ H NEGATIVE 01/08/2018 5:15pm 01/08/2018 5:27pm Urine Glucose (UA) 3+ H NEGATIVE 01/08/2018 5:15pm 01/08/2018 5:27pm Urine Ketones TRACE H NEGATIVE 01/08/2018 5:15pm 01/08/2018 5:27pm Urine Urobilinogen 0.2 mg/dL 0.2 - 1 01/08/2018 5:15pm 01/08/2018 5: 27pm Urine Bilirubin NEGATIVE NEGATIVE 01/08/2018 5:15pm 01/08/2018 5: 27pm Urine Blood 4+ H NEGATIVE 01/08/2018 5:15pm 01/08/2018 5:27pm Urine WBC NONE /HPF 0-5 01/08/2018 5:15pm 01/08/2018 5:53pm Urine RBC >50 /HPF H 0-5 01/08/2018 5:15pm 01/08/2018 5:53pm Urine Bacteria NONE /HPF NONE 01/08/2018 5:15pm 01/08/2018 5:53pm Urine Epithelial Cells NONE /LPF NONE 01/08/2018 5:15pm 01/08/2018 5: 53pm Sodium Level 140 mmol/L 136-145 01/15/2018 6:47am 01/15/2018 8:00am Potassium Level 3.7 mmol/L 3.5-5.1 01/15/2018 6:47am 01/15/2018 8:00am Chloride Level 104 mmol/L 98-107 01/15/2018 6:47am 01/15/2018 8:00am Carbon Dioxide Level 27 mmol/L 22-29 01/15/2018 6:47am 01/15/2018 8: 00am Anion Gap 12.7 mmol/L 8-16 01/15/2018 6:47am 01/15/2018 8:00am Blood Urea Nitrogen 39 mg/dL H 7-26 01/15/2018 6:47am 01/15/2018 8:00am Creatinine 1.76 mg/dL H 0.72-1.25 01/15/2018 6:47am 01/15/2018 8:00am BUN/Creatinine Ratio 22 6-25 01/15/2018 6:47am 01/15/2018 8:00am Estimat Glomerular Filtration Rate 39 ML/MIN L 60- 01/15/2018 6:47am 8:00am Ranges were taken from the National Kidney Disease Education Program and the National Kidney Foundation literature. Reference ranges: 60 or greater: Normal 16-59 (for 3 consecutive months): Chronic kidney disease 15 or less: Kidney failure Glucose Level 207 mg/dL H 74-118 01/15/2018 6:47am 01/15/2018 8:00am Calcium Level 8.9 mg/dL 8.4-10.2 01/15/2018 6:47am 01/15/2018 8:00am Bedside Glucose 309 mg/dL H 70-120 01/17/2018 10:56am 01/17/2018 11: 48am Meter ID: [id number] Hemoglobin A1c Percent 8.2 % H 4.0-7.0 01/09/2018 6:35am 01/09/2018 8: 25am Total Bilirubin 0.4 mg/dL 0.2-1.2 01/08/2018 4:30pm 01/08/2018 5:27pm Aspartate Amino Transf (AST/SGOT) 20 IU/L 5-34 01/08/2018 4:30pm 2017 5:27pm Alanine Aminotransferase (ALT/SGPT) 34 IU/L 0-55 01/08/2018 4:30pm 10/2018 5:27pm Total Protein 7.3 g/dL 6.5-8.1 01/08/2018 4:30pm 01/08/2018 5:27pm Albumin 3.6 g/dL 3.5-5.0 01/08/2018 4:30pm 01/08/2018 5:27pm Globulin 3.7 g/dL H 2.3-3.5 01/08/2018 4:30pm 01/08/2018 5:27pm Albumin/Globulin Ratio 1.0 0.8-2.0 01/08/2018 4:30pm 01/08/2018 5: 27pm Alkaline Phosphatase 36 IU/L L 40-150 01/08/2018 4:30pm 01/08/2018 5: 27pm Thyroid Stimulating Hormone (TSH) 2.715 uIU/mL 0.350-4.940 01/09/2018 6: 35am 01/09/2018 8:41am Procedures Procedure Status Date Provider(s) Transurethral resection of bladder tumor (TURBT) with cystoscopy Completed CONCETTA ALEXANDER MD CT of abdomen and pelvis without contrast Active 01/08/18 GENESIS CLARK MD Encounters Encounter Location Arrival/Admit Date Discharge/Depart Date Attending Provider Discharged Inpatient [facility] 01/08/18 9:49pm 01/17/18 4:30pm ADALID VANG MD
--- OUTSIDE RECORDS SUMMARY | 2018-01-18 02:13 | XMS REPORT ---
Author Author [facility] Organization [facility] Address Unknown Phone Unavailable Care Team Providers Care Garment Steamer Name Role Phone ADALID VANG Unavailable Unavailable Problems This patient has no known problems. Allergies, Adverse Reactions, Alerts This patient has no known allergies or adverse reactions. Medications This patient has no known medications. Results Test Description Test Time Test Comments Text Results Atomic Results Result Comments CT ABDOMEN/PELVIS WO [facility] [address] [place], [place] [address] Patient Name: TYLER QUIÑONES MR #: [id number] : 1950 Age/Sex: 67/M Req #: [id number] Adm Physician: ADALID VANG MD Ordered by: GENESIS CLARK MD Report #: [id number] Location: [facility] Room/Bed: [place] [address] Procedure: [id number] CT/CT ABDOMEN/PELVIS WO Exam Date: 01/08/18 Exam Time: 2209 REPORT STATUS: Signed EXAM: CT ABDOMEN/PELVIS WO DATE: 01/08/2018 9:41 PM INDICATION: S hematuria, evaluate for ureterolithiasis S [id number] S 2210 COMPARISON: None TECHNIQUE: The abdomen and pelvis were scanned using a multidetector helical scanner. Coronal and sagittal reformations were obtained. Routine protocol performed. IV Contrast: 0 FINDINGS: Lack of IV contrast decreases sensitivity in evaluating abdominal and pelvic organs. LOWER THORAX: No consolidations LIVER/BILIARY: Liver dome is incompletely imaged. Hepatic steatosis . GALLBLADDER: Unremarkable SPLEEN: Unremarkable PANCREAS: Unremarkable ADRENALS: 8 mm right adrenal myelolipoma. Nodularity of bilateral adrenal glands, likely hyperplasia/underlying adenomas (for example 1.1 cm nodular area on the left, 4 HU, image 30). KIDNEYS: No hydronephrosis or stones. There is a 10 mm exophytic left interpolar renal lesion with peripheral thick calcification. GI TRACT: No distention, wall thickening or evidence of obstruction. Normal appendix. VESSELS: Severe atherosclerotic changes with infrarenal abdominal aortic aneurysm, maximal dimension 3.4 cm, extending into the common iliac arteries (right 1.9 cm, left 1.7 cm) PERITONEUM/RETROPERITONEUM: No free air or fluid LYMPH NODES: No lymphadenopathy REPRODUCTIVE ORGANS/BLADDER: Bladder is decompressed with at least 3 rounded high attenuation lesions/areas measuring 2.8 cm posteriorly , 2.6 cm posteriorly, and 1.3 cm inferiorly. Normal prostate size. SOFT TISSUES: Tiny fat-containing umbilical hernia. BONES: Multilevel degenerative changes with prior lower lumbar decompression. IMPRESSION: 1. Findings most suspicious for multifocal bladder cancer/transitional cell carcinoma. Recommend direct visualization. 2. Indeterminate left interpolar renal lesion. Recommend nonemergent follow-up CT renal mass protocol. Signed by: Dr Mague Thacker MD on 01/08/2018 11:01 PM Dictated By: MAGUE THACKER MD 00 Transcribed By: ROXANNE on 01/08/182300 COPY TO: GENESIS CLARK MD
[2018-01-18] MEDS ORDERED: PANTOPRAZOLE 40 MG 10ML VIAL IV STA (03:23)
[2018-01-18 03:34] LABS: BASOPHILS # (AUTO) 0.1 (0.0-0.1); BASOPHILS % 0.8 % (0.0-1.0); EOSINOPHILS # (AUTO) 0.1 (0.0-0.4); EOSINOPHILS % 1.5 % (0.0-6.0); HEMATOCRIT 35.7 % (38.2-49.6); HEMOGLOBIN 12.2 g/dL (14.0-18.0); LYMPHOCYTES # (AUTO) 0.9 (1.0-3.2); LYMPHOCYTES % 11.7 % (18.0-39.1); MEAN CORPUSCULAR HEMOGLOBIN 32.8 pg (28-32); MEAN CORPUSCULAR HGB CONC 34.2 g/dL (31-35); MONOCYTES # (AUTO) 0.5 (0.2-0.8); MONOCYTES % 6.7 % (4.4-11.3); NEUTROPHILS % 78.5 % (38.7-80.0); PLATELET COUNT 259 x10e3/uL (140-360); RED BLOOD COUNT 3.72 x10e6/uL (4.3-5.7); RED CELL DISTRIBUTION WIDTH 12.5 % (11.7-14.4)
[2018-01-18 03:35] LABS: BILIRUBIN,URINE NEGATIVE (NEGATIVE); KETONES,URINE TRACE (NEGATIVE); LEUKOCYTE ESTERASE ,URINE 1+ (NEGATIVE); NITRITE,URINE NEGATIVE (NEGATIVE); URINE UROBILINOGEN 0.2 mg/dL (0.2 - 1)
[2018-01-18 03:36] LABS: ANION GAP 18.6 mmol/L (8-16); BLOOD UREA NITROGEN 30 mg/dL (7-26); CARBON DIOXIDE 22 mmol/L (22-29); CHLORIDE 106 mmol/L (98-107); CLARITY,URINE SL CLOUDY (CLEAR); COLOR,URINE YELLOW (YELLOW); CREATININE, SERUM 1.84 mg/dL (0.72-1.25); POTASSIUM 4.6 mmol/L (3.5-5.1); PROTEIN,URINE DIPSTICK 2+ (NEGATIVE); SODIUM 142 mmol/L (136-145)
[2018-01-18 03:37] LABS: ALANINE AMINOTRANSFERASE 43 IU/L (0-55); ALBUMIN 3.4 g/dL (3.5-5.0); ALKALINE PHOSPHATASE 54 IU/L (40-150); BUN/CREATININE RATIO 16 (6-25); CALCIUM 9.3 mg/dL (8.4-10.2); CREATINE KINASE 116 IU/L (30-200); EST GLOMERULAR FILTRATION RATE 37 ML/MIN (60-); GLUCOSE 362 mg/dL (74-118); MAGNESIUM 1.7 MG/DL (1.3-2.1)
[2018-01-18 03:38] LABS: AMPHETAMINES SCREEN,URINE NEGATIVE (NEGATIVE); PHENCYCLIDINE SCREEN,URINE NEGATIVE (NEGATIVE); PROTHROMBIN TIME 12.4 seconds (11.9-14.5)
[2018-01-18 03:39] LABS: BENZODIAZEPINES SCREEN,URINE POSITIVE (NEGATIVE); PARTIAL THROMBOPLASTIN TIME 27.4 seconds (23.8-35.5)
[2018-01-18 03:42] LABS: AMORPHOUS SEDIMENT,URINE FEW (FEW); BACTERIA,URINE MODERATE /HPF; EPITHELIAL CELLS,URINE FEW /LPF; WBC,URINE (MAN) 21-50 /HPF (0-5)
[2018-01-18 04:02] LABS: THYROID STIMULATING HORMONE 0.922 uIU/mL (0.350-4.940)
[2018-01-18] MEDS ORDERED: MEROPENEM 1GRAM 1 GM in SODIUM CHLORIDE 0.9% 100 ML 100 ML IV SCH (05:00)
[2018-01-18] MEDS ORDERED: VANCOMYCIN 1GM/NS 250 ML 250 ML IV ONE (05:00)
[2018-01-18] MEDS ORDERED: MEROPENEM 1 GM VIAL ONE (05:12)
--- NOTE | 2018-01-18 05:24 | Diagnostic Imaging Report ---
EXAMINATION: Head CT without contrast. HISTORY:Altered mental status. COMPARISON:None. TECHNIQUE: Multidetector axial images were obtained from the foramen magnum to the vertex without contrast. The images were reconstructed using brain and bone algorithms. Thin section brain images were reformatted into coronal and sagittal planes. Intravenous contrast: None IMAGE QUALITY: Acceptable. FINDINGS: Skull/scalp: No abnormality. Parenchyma: Cortical-based hypodensity in left precentral gyrus that extends to the centrum semiovale while he, anne radiata, posterior aspect of left superior frontal gyrus represents age indeterminate likely chronic vascular insult in MCA territory. Old vascular insult in bilateral striata capsular region. Cortical-based hypodensity in the left occipital lobe involving the cuneus represents an chronic encephalomalacia from prior vascular insult in SUPERVISOR SAWMILL territory. Nonspecific bilateral frontoparietal patchy and confluent white matter hypodensity are likely related to small vessel ischemic changes. No acute hemorrhage or mass. Arteries: Mild atherosclerotic calcification in bilateral carotid siphon. Dural sinuses: No abnormal density suggestive of thrombosis. Ventricles: Moderate compensated dilatation due to volume loss. Exvacuodilatation of the occipital horn of left lateral ventricle. Extra-axial spaces: No abnormal density. Brain volume: Advanced generalized cerebral volume loss. Craniocervical junction: No mass, Chiari malformation, or basilar invagination. Sella: No mass. Paranasal/mastoid sinuses: Imaged portions unremarkable. IMPRESSION: 1. No acute intracranial abnormality, particularly no acute hemorrhage. 2. Chronic encephalomalacia in left occipital lobe from prior vascular insult in SUPERVISOR SAWMILL territory. Chronic encephalomalacia in left MCA vascular territory. Possibility of superimposed acute on chronic vascular insult is not excluded. 3. Old vascular insult in bilateral striata capsular region. 4. Moderate supratentorial white matter microvascular ischemic changes. 5. Advanced generalized cerebral volume loss. Signed by: Dr. Bailee Hester M.D. on 01/18/2018 5:21 AM
--- NOTE | 2018-01-18 05:27 | Diagnostic Imaging Report ---
EXAMINATION: CHEST SINGLE (PORTABLE) INDICATION: Altered mental status COMPARISON: None FINDINGS: TUBES and LINES: None. LUNGS: Lungs are not well inflated. Lungs are clear. There is mild prominence of the central pulmonary vasculature, consistent with pulmonary venous congestion. PLEURA: No pleural effusion or pneumothorax. HEART AND MEDIASTINUM: The cardiomediastinal silhouette is unremarkable. BONES AND SOFT TISSUES: No acute osseous lesion. Soft tissues are unremarkable. UPPER ABDOMEN: No free air under the diaphragm. IMPRESSION: No acute thoracic abnormality. Signed by: Dr. Sonny Haley M.D. on 01/18/2018 5:24 AM
[2018-01-18] MEDS ORDERED: ACETAMINOPHEN 325 MG TAB PO PRN (05:45)
[2018-01-18] MEDS ORDERED: ONDANSETRON HCL INJ 2 MG/ML VIAL IV PRN (05:45)
[2018-01-18] MEDS ORDERED: DEXTROSE 50% SYRINGE 50 ML IV PRN ×2 (05:45→09:30)
[2018-01-18] MEDS ORDERED: SODIUM CHLORIDE 0.9% 500ML 500 ML IV ONE (05:45)
[2018-01-18] MEDS ORDERED: INSULIN REGULAR, HUMAN 100 UNIT/1 ML 3ML VIAL SQ ONE (05:45)
[2018-01-18] MEDS ORDERED: INSULIN REGULAR, HUMAN 100 UNIT/1 ML 3ML VIAL SQ SCH (07:30)
[2018-01-18] MEDS ORDERED: PANTOPRAZOLE 40 MG 10ML VIAL IV SCH (09:00)
[2018-01-18] MEDS ORDERED: CEFTRIAXONE SOD 1 GM/NS 50 ML 50 ML IV SCH (09:30)
--- NOTE | 2018-01-18 10:03 | Consultation ---
DATE OF CONSULTATION: January 18, 2018 CARDIOLOGY CONSULTATION: Cardiac clearance. CONSULTING PHYSICIAN: Dr. Isaac. HPI: This is a 67-year-old male that presented with altered mental status. According to the medical record at bedside nurse, he was discharged home from the hospital yesterday. He was found confused, wandering around, and EMS was called. He has a history of gross hematuria and underwent cystoscopy and was doing good. He is confused today, and not able to follow command or verbalize any need. PAST MEDICAL HISTORY: Hypertension, diabetes, bladder cancer, history of alcohol and tobacco abuse, and CKD. PAST SURGICAL HISTORY: Cystoscopy. FAMILY HISTORY: Noncontributory. SOCIAL HISTORY: He lives at home alone. He quit smoking 3 years ago. MEDICATIONS: See med list. ALLERGIES: HE IS NOT ALLERGIC TO ANY MEDICATION. REVIEW OF SYSTEMS: Negative except those mentioned above. PHYSICAL EXAMINATION VITAL SIGNS: Temperature 98, heart rate 60, respirations 19, oxygen saturation 97% on room air, blood pressure 169/76. GENERAL: He is awake but confused. Follows simple command. HEENT: Mucous membrane moist. NECK: Supple. LUNGS: Lungs bilateral clear to auscultation. CARDIOVASCULAR: S1 and S2 present. ABDOMEN: Soft. NEUROLOGICAL: He is alert and oriented times 1. EXTREMITIES: With no edema. LABS: Sodium 140, potassium 3.7, chloride 104. White blood cell 6.04. IMPRESSION 1. Mental status change. 2. Bladder cancer. 3. Hypertension. 4. Diabetes. 5. Chronic kidney disease. 6. History of alcohol use. ASSESSMENT AND PLAN: Will get an echo to assess the LV and the valve function. He has no complaint of chest pain or shortness of breath. Will put him on low-dose hydralazine to control his blood pressure and cleared for surgery. Further cardiac workup pending clinical course. Thank you for this consultation. DICTATED BY MONIQUE MCCULLOUGH NP Job#: [id number] BOUBACAR
[2018-01-18 10:31] LABS: CREATINE KINASE MB 3.4 ng/mL (0-5.0)
[2018-01-18] MEDS: CEFTRIAXONE SOD 1 GM VIAL IV SCH (10:39)
[2018-01-18] MEDS: INSULIN LISPRO 100 UNIT/1 ML 3ML VIAL SQ SCH ×3 (12:37→21:30)
[2018-01-18 19:09] LABS: CREATINE KINASE MB 2.5 ng/mL (0-5.0)
[2018-01-18] MEDS ORDERED: SIMVASTATIN 40 MG TAB PO SCH (21:00)
[2018-01-19] VITALS (8 sets, daily range): BP systolic 114–152; BP diastolic 59–72
[2018-01-19] MEDS: LEVOTHYROXINE SODIUM 25 MCG TABLET PO SCH (06:06)
[2018-01-19 07:25] LABS: BASOPHILS # (AUTO) 0.1 (0.0-0.1); EOSINOPHILS # (AUTO) 0.2 (0.0-0.4); EOSINOPHILS % 4.6 % (0.0-6.0); HEMATOCRIT 31.2 % (38.2-49.6); HEMOGLOBIN 10.4 g/dL (14.0-18.0); LYMPHOCYTES # (AUTO) 1.5 (1.0-3.2); LYMPHOCYTES % 30.6 % (18.0-39.1); MEAN CORPUSCULAR HEMOGLOBIN 32.4 pg (28-32); MEAN CORPUSCULAR HGB CONC 33.3 g/dL (31-35); MEAN CORPUSCULAR VOLUME 97.2 fL (81-99); MONOCYTES # (AUTO) 0.4 (0.2-0.8); NEUTROPHILS # (AUTO) 2.5 (2.1-6.9); NEUTROPHILS % 53.1 % (38.7-80.0); PLATELET COUNT 237 x10e3/uL (140-360); RED BLOOD COUNT 3.21 x10e6/uL (4.3-5.7); RED CELL DISTRIBUTION WIDTH 12.9 % (11.7-14.4)
[2018-01-19] MEDS: INSULIN LISPRO 100 UNIT/1 ML 3ML VIAL SQ SCH ×4 (07:30→21:25)
[2018-01-19 07:46] LABS: ALBUMIN/GLOBULIN RATIO 0.9 (0.8-2.0); ANION GAP 13.3 mmol/L (8-16); CALCIUM 8.8 mg/dL (8.4-10.2); CREATININE, SERUM 1.38 mg/dL (0.72-1.25); POTASSIUM 3.3 mmol/L (3.5-5.1)
[2018-01-19] MEDS ORDERED: NON-FORMULARY MEDICATION (Fish Oil/Dha/Epa (Fish Oil 1,200 Mg Fish Oil) 1,200 MG) PO SCH (09:00)
[2018-01-19] MEDS ORDERED: [UNRECOGNIZED DRUG - OTHER] PO SCH (09:00)
[2018-01-19] MEDS ORDERED: HYDROCHLOROTHIAZIDE PO SCH (09:00)
[2018-01-19] MEDS ORDERED: HYDROCHLOROTHIAZIDE 25 MG TAB PO SCH (09:00)
[2018-01-19] MEDS ORDERED: SIMVASTATIN 20 MG TAB PO SCH (09:00)
[2018-01-19] MEDS ORDERED: LOSARTAN PO SCH (09:00)
[2018-01-19] MEDS ORDERED: LEVOTHYROXINE SODIUM 50 MCG TAB PO SCH (09:00)
[2018-01-19] MEDS ORDERED: DULOXETINE HCL 30 MG DELAYED RELEASE PO SCH (09:00)
[2018-01-19] MEDS ORDERED: LOSARTAN POTASSIUM 100 MG TAB PO SCH (09:00)
[2018-01-19] MEDS ORDERED: MULTIVITAMINS/MINERALS TAB PO SCH (09:00)
[2018-01-19] MEDS ORDERED: FENOFIBRATE 145 MG TAB PO SCH (09:00)
[2018-01-19] MEDS ORDERED: QUETIAPINE FUMARATE 25 MG TAB PO PRN (09:15)
[2018-01-19] MEDS: TAMSULOSIN HCL 0.4 MG CAP PO SCH (09:58)
[2018-01-19] MEDS: MULTIVITAMINS/MINERALS TAB PO SCH (09:58)
[2018-01-19] MEDS: PANTOPRAZOLE SOD 40 MG TABEC PO SCH (09:58)
[2018-01-19] MEDS: CEFTRIAXONE SOD 1 GM VIAL IV SCH (09:59)
[2018-01-19] MEDS: OMEGA 3 POLYUNSAT FATTY ACIDS 1000 MG SOFTGEL PO SCH (09:59)
[2018-01-19] MEDS: MEMANTINE 10 MG TAB PO SCH (18:05)
[2018-01-19] MEDS: QUETIAPINE FUMARATE 25 MG TAB PO SCH (21:25)
[2018-01-20] VITALS (7 sets, daily range): BP systolic 111–140; BP diastolic 58–69
[2018-01-20] MEDS: LEVOTHYROXINE SODIUM 25 MCG TABLET PO SCH (06:17)
[2018-01-20] MEDS: INSULIN LISPRO 100 UNIT/1 ML 3ML VIAL SQ SCH ×4 (08:21→20:24)
[2018-01-20] MEDS: OMEGA 3 POLYUNSAT FATTY ACIDS 1000 MG SOFTGEL PO SCH (08:22)
[2018-01-20] MEDS: MEMANTINE 10 MG TAB PO SCH ×2 (08:22→16:51)
[2018-01-20] MEDS: TAMSULOSIN HCL 0.4 MG CAP PO SCH (08:22)
[2018-01-20] MEDS: PANTOPRAZOLE SOD 40 MG TABEC PO SCH (08:22)
[2018-01-20] MEDS: MULTIVITAMINS/MINERALS TAB PO SCH (08:22)
[2018-01-20] MEDS: CEFTRIAXONE SOD 1 GM VIAL IV SCH (09:50)
[2018-01-20 12:11] LABS: BASOPHILS % 0.7 % (0.0-1.0); EOSINOPHILS # (AUTO) 0.2 (0.0-0.4); EOSINOPHILS % 3.4 % (0.0-6.0); HEMATOCRIT 32.6 % (38.2-49.6); HEMOGLOBIN 10.7 g/dL (14.0-18.0); LYMPHOCYTES # (AUTO) 1.3 (1.0-3.2); LYMPHOCYTES % 21.8 % (18.0-39.1); MEAN CORPUSCULAR HEMOGLOBIN 31.8 pg (28-32); MEAN CORPUSCULAR HGB CONC 32.8 g/dL (31-35); MONOCYTES # (AUTO) 0.5 (0.2-0.8); MONOCYTES % 7.7 % (4.4-11.3); NEUTROPHILS # (AUTO) 3.8 (2.1-6.9); NEUTROPHILS % 65.4 % (38.7-80.0); PLATELET COUNT 246 x10e3/uL (140-360); RED BLOOD COUNT 3.36 x10e6/uL (4.3-5.7); RED CELL DISTRIBUTION WIDTH 13.1 % (11.7-14.4)
[2018-01-20 12:25] LABS: ANION GAP 14.6 mmol/L (8-16); CALCIUM 8.9 mg/dL (8.4-10.2); CREATININE, SERUM 1.56 mg/dL (0.72-1.25); POTASSIUM 3.6 mmol/L (3.5-5.1)
[2018-01-20] MEDS: QUETIAPINE FUMARATE 25 MG TAB PO SCH (20:24)
[2018-01-21] VITALS: BP 132/60
[2018-01-21 03:45] VITALS: BP 128/60
[2018-01-21] MEDS: LEVOTHYROXINE SODIUM 25 MCG TABLET PO SCH (06:05)
[2018-01-21] MEDS: MEMANTINE 10 MG TAB PO SCH (08:02)
[2018-01-21] MEDS: PANTOPRAZOLE SOD 40 MG TABEC PO SCH (08:02)
[2018-01-21] MEDS: TAMSULOSIN HCL 0.4 MG CAP PO SCH (08:02)
[2018-01-21] MEDS: MULTIVITAMINS/MINERALS TAB PO SCH (08:02)
[2018-01-21] MEDS: OMEGA 3 POLYUNSAT FATTY ACIDS 1000 MG SOFTGEL PO SCH (08:02)
[2018-01-21] MEDS: INSULIN LISPRO 100 UNIT/1 ML 3ML VIAL SQ SCH ×2 (08:02→11:51)
[2018-01-21 08:07] VITALS: BP 130/67
[2018-01-21] MEDS: CEFTRIAXONE SOD 1 GM VIAL IV SCH (10:46)
[2018-01-21 11:52] VITALS: BP 144/75
[2018-01-21 14:53] VITALS: BP 144/75
--- NOTE | 2018-01-22 02:45 | Discharge Summary ---
PCP: Dr. Deng Wilcox. CONSULTANTS 1. Dr. Alli Isaac. 2. Dr. Yusuf Restrepo. FINAL DIAGNOSES 1. Urinary bladder cancer, status post biopsy. 2. Recurrent hematuria. 3. Baseline progressive dementia, Alzheimer type most likely. 4. Baseline alcohol and tobacco habit. 5. Baseline chronic kidney disease stage 3. 6. Hypertension. 7. Enlarged prostate. 8. Hypothyroidism. 9. Multiple other medical problems including progressive decline. SUMMARY: A 67-year-old male was discharged previously and within 24 hours, the patient came back to the hospital because of not able to continue with care at home. Prior to that, he was seen by his provider; but for some reason, the need is much more than he is able to obtain. After further discussion with his power of sports attorney, basically the patient has progressively declined and they were previously wanting to place the patient in a [facility]. Because of his hematuria and urinary bladder cancer diagnosed, patient is definitely not a candidate at his current condition for any surgical intervention. Matter of fact, he is progressively declining both mentally and physiologically. The patient is more appropriate for palliative care, hospice care at the [facility] placement. Arrangements have been made. The patient will be admitted to [facility] hospice for continuing with placement care at the nursing facility. Discussed with the patient's power of sports attorney and family and overall, we all agree that the patient's functional status has been declining along with his mental status as well. The patient will discharge to the facility. He will continue with comfort care medication and so forth at the facility. Please review the MAR on discharge. Job#: [id number] CRISTIN
== END 2018-01-21 14:59 | DRG 687 ==
LOC: ER 02:10 → ERHOLD 05:41 → MED/SURG3 06:09
PROVIDERS: ADMIT Internal Medicine; ATTEND Internal Medicine
DX: C67.9 Malignant neoplasm of bladder, unspecified (principal); N39.0 Urinary tract infection, site not specified; G30.9 Alzheimer's disease, unspecified; I13.0 Hypertensive heart and chronic kidney disease with heart failure and stage 1 through stage 4 chronic kidney disease, or unspecified chronic kidney disease; I50.9 Heart failure, unspecified; F02.80 Dementia in other diseases classified elsewhere, unspecified severity, without behavioral disturbance, psychotic disturbance, mood disturbance, and anxiety; R31.9 Hematuria, unspecified; F17.200 Nicotine dependence, unspecified, uncomplicated; F10.21 Alcohol dependence, in remission; N18.3 Chronic kidney disease, stage 3 (moderate); N40.0 Benign prostatic hyperplasia without lower urinary tract symptoms; E03.9 Hypothyroidism, unspecified; D64.9 Anemia, unspecified; B95.7 Other staphylococcus as the cause of diseases classified elsewhere
CPT/HCPCS: 36415; 70450; 71045; 80048; 80053; 80307; 80320; 81001; 82140; 82550; 82553; 82948; 83605; 83735; 84443; 84484; 85025; 85610; 85730; 87040; 87071; 87086; 87205; 93005; 93306; 96365; 96374; 97139; 99284; J0696; J2185; J3370; J7040

== ENCOUNTER → 2019-01-15 | Outpatient (CLI) | payer MEDICARE ==
[~2019-01-15] MED LIST changes: +IOPAMIDOL 370 MG/ML 200 ML INFUS..BTL INJ ONE; +SODIUM CHLORIDE 0.9% 250ML 250 ML ONE; +SODIUM CHLORIDE 0.9% 500ML 500 ML ONE; +SODIUM CHLORIDE 0.9% 50ML 0 ML ONE; +SODIUM CHLORIDE 0.9% 50ML 50 ML ONE
[2019-01-15 10:40] LABS: CREATININE, SERUM 1.26 mg/dL (0.72-1.25)
--- NOTE | 2019-01-15 13:52 | Diagnostic Imaging Report ---
EXAM: CT ABDOMEN/PELVIS WOW DATE: 01/15/2019 9:53 AM INDICATION: Indeterminate left renal lesion. COMPARISON: CT Abdomen/Pelvis without contrast 01/08/2018. TECHNIQUE: The abdomen and pelvis were scanned using a multidetector helical scanner. Coronal and sagittal reformations were obtained. Renal mass protocol performed with non-contrast, arterial, and portal venous phase images through the abdomen and delayed images through the abdomen and pelvis. Dose modulation, iterative reconstruction, and/or weight based adjustment of the mA/kV was utilized to reduce the radiation dose to as low as reasonably achievable. IV Contrast: 100 cc of Isovue 370 Radiation dose: 1884.8 mGy-cm FINDINGS: LOWER THORAX: Coronary atherosclerosis. Patchy atelectasis in the lingula. LIVER/BILIARY: Hepatic steatosis. No focal masses. GALLBLADDER: Unremarkable SPLEEN: No splenomegaly. PANCREAS: Unremarkable ADRENALS: Subcentimeter right adrenal myelolipoma. Subcentimeter left adrenal adenoma (<10 HU). Mild thickening of the right adrenal gland without additional discrete lesion. KIDNEYS: No hydronephrosis or stones. Again noted is a 1 cm exophytic left interpolar renal hypodensity with thick peripheral calcification. No evidence of solid enhancing component. There is a 1.1 cm right lower pole renal cyst. Additional subcentimeter right renal hypodensity is too small to characterize, but likely represents a cyst. The collecting systems and ureters are partially opacified and demonstrate no definite thickening or mass lesion. GI TRACT: No distention, wall thickening or evidence of obstruction. Normal appendix. VESSELS: Extensive atherosclerotic changes with infrarenal abdominal aortic aneurysm, maximal dimension 3.4 cm, with associated ectasia of the common iliac arteries measuring 1.8 cm on the right and 1.5 cm on the left. There is mural thrombus within the infrarenal abdominal aorta and right common iliac artery. PERITONEUM/RETROPERITONEUM: No free air or fluid LYMPH NODES: No lymphadenopathy REPRODUCTIVE ORGANS/BLADDER: The bladder is partially opacified with high-density contrast. There is a large posterior bladder mass, measuring up to 3.7 x 5.8 cm (AP x TV). Additional inferior bladder nodule measuring up to 1.4 cm BONES/SOFT TISSUES: Degenerative changes are noted. Status post decompression of the lower lumbar spine. No suspicious lytic or blastic lesions. Tiny fat-containing umbilical hernia. IMPRESSION: Findings of multifocal bladder cancer/transitional cell carcinoma. No definite additional urothelial lesions identified in the collecting system and ureters, but are incompletely evaluated on this study. Recommend direct visualization. Findings in the left mid pole kidney are most consistent with a complex hyperdense cyst with thick peripheral calcification. No definite solid nodular component. Follow-up renal ultrasound is suggested to assess for stability. Left adrenal adenoma and right adrenal myelolipoma. Mild thickening of the right adrenal gland without additional lesion identified. Signed by: Dr. Paz Russell MD on 01/15/2019 1:49 PM
== END ==
LOC: CT 09:47
PROVIDERS: ATTEND Urology
DX: D41.00 Neoplasm of uncertain behavior of unspecified kidney (principal); D44.10 Neoplasm of uncertain behavior of unspecified adrenal gland; R31.0 Gross hematuria; N18.3 Chronic kidney disease, stage 3 (moderate); G30.9 Alzheimer's disease, unspecified; F02.80 Dementia in other diseases classified elsewhere, unspecified severity, without behavioral disturbance, psychotic disturbance, mood disturbance, and anxiety; N40.0 Benign prostatic hyperplasia without lower urinary tract symptoms; E03.9 Hypothyroidism, unspecified; J44.9 Chronic obstructive pulmonary disease, unspecified; K21.9 Gastro-esophageal reflux disease without esophagitis; Z85.51 Personal history of malignant neoplasm of bladder
CPT/HCPCS: 36415; 74178; 82565; 84520; 96360; J7040; J7050; Q9967

== ENCOUNTER → 2019-02-08 | Day surgery (SDC) | payer OTHER ==
[~2019-02-08] MED LIST changes: +ACETAMINOPHEN650 MG RC; +ARTIFICIAL TEAR15 ML OP; +BELLADONNA/OPIUM 30 MG SUPP RC ONE; +CEFTRIAXONE SOD 1 GM/NS 50 ML 50 ML IV ONE; +CLARITIN-D 241 EACH PO; +DULCOLAX SUPP10 MG RC; +EPHEDRINE SULFATE INJ 50 MG/10 ML SYR ONE; +FENTANYL CITRATE/PF 100MCG/2 ML INJ ONE; +GABAPENTIN100 MG PO; +GLUCAGEN1 M1 PO; +GUAIFENESI100 MG/5 M PO; +HUMALOG100 UNIT/1 SC; +HUMULIN 70/30 SC; +IMODIUM2 MG PO; -IOPAMIDOL 370 MG/ML 200 ML INFUS..BTL INJ ONE; +IOPAMIDOL 610MG/1ML 300 MG/ML VIAL IV ONE; +LEVEMIR100 UNIT/1 SC; +LEVSIN0.125 MG PO; +LIDOCAINE HCL 2% LOCAL INJ 5 ML SDV VIAL INJ ONE; +LISINOPRIL10 MG PO; +METFORMIN HCL500 MG PO; +ONDANSETRON HCL INJ 2MG/ML 2ML 2 MG/ML VIAL ONE; +PROMETHAZINE HC25 M1 RC; +PROPOFOL IV EMULSION 10 MG/ML 20 ML VIAL ONE; +SEVOFLURANE INHAL SOLN 250 ML PEN BTL ONE; -SODIUM CHLORIDE 0.9% 250ML 250 ML ONE; -SODIUM CHLORIDE 0.9% 500ML 500 ML ONE; -SODIUM CHLORIDE 0.9% 50ML 0 ML ONE; -SODIUM CHLORIDE 0.9% 50ML 50 ML ONE
[2019-02-08 13:10] VITALS: BP 150/69
--- NOTE | 2019-03-27 06:58 | Operative Report ---
DATE OF PROCEDURE: 02/08/2019 SURGEON: Alli Isaac MD PREOPERATIVE DIAGNOSIS: Bladder cancer. POSTOPERATIVE DIAGNOSIS: Bladder cancer. OPERATION PERFORMED: 1. Cystourethroscopy with transurethral resection of very large bladder tumor. 2. Interpretation of cystography, no radiologist present. ANESTHESIA: General. COMPLICATIONS: None. CLINICAL SUMMARY: Arthur Aldana is a complicated 68-year-old man, who has failed to follow up due to constraints with previously negotiated and elected hospice status. The patient returned to follow up his gross hematuria and is brought for the above procedures. The patient's guardian is aware of the risks of bleeding, infection, injury to adjacent structures, incomplete cancer resection, need for additional procedures, and elected to proceed. OPERATIVE PROCEDURE IN DETAIL: Informed consent was verified. Arthur Aldana was properly identified, taken to the operating room, and placed on the cystoscopy table in supine position. Anesthesia was uneventfully begun. The patient was then carefully gently repositioned in dorsal lithotomy position with all pressure points well padded. His genitalia were prepped and draped in usual sterile fashion. The cystoscope sheath was inserted under direct vision and guided down the unremarkable urethra through the normal sphincteric region and through the prostate bed, which was significant for visually obstructing BPH and we entered the patient's bladder, which exhibited a very large bladder cancer well over 5 cm and along the trigone, the posterior wall, and some on the lateral cordero, mostly on the right. We could not visualize the ureteral orifices despite methylene blue that was given. The resectoscope was then placed. We proceeded with resecting tumor. We resected for exactly 1 hour and then we stopped. We obtained hemostasis. We did not want to subject the patient to irrigation of longer than 1 hour with hypotonic solution. We verified hemostasis. Zamora catheter was then placed. Contrast was then injected and performed cystography. Interpretation of cystography: Contrast was injected in retrograde fashion. The Zamora balloon was present in the bladder. The bladder wall was slightly irregular. There was no evidence of vesicoureteral reflux. We did not identify any ureters. Some evidence of filling defects was noted in the posterior bladder wall. The patient's bladder was drained. Belladonna and opium suppository were placed and the patient was uneventfully reversed from anesthesia and taken to recovery room in stable condition. There were no complications to the procedure. He tolerated the procedure well. Plans will be to follow the patient up in the office, follow up on the pathology report, and determine the next step in management. The patient most likely is not a surgical candidate for a large invasive procedure such as radical cystectomy. However, he may be a candidate for repeated TUR bladder tumors for palliation and comfort care. MD RUDDY Portillo/LUZMA /[id number]
== END | disposition home or self-care (01) ==
LOC: OR 06:41
PROVIDERS: ATTEND Urology
DX: C67.0 Malignant neoplasm of trigone of bladder (principal); C67.2 Malignant neoplasm of lateral wall of bladder; C67.4 Malignant neoplasm of posterior wall of bladder; N40.1 Benign prostatic hyperplasia with lower urinary tract symptoms; N13.8 Other obstructive and reflux uropathy; J44.9 Chronic obstructive pulmonary disease, unspecified; E11.22 Type 2 diabetes mellitus with diabetic chronic kidney disease; I13.0 Hypertensive heart and chronic kidney disease with heart failure and stage 1 through stage 4 chronic kidney disease, or unspecified chronic kidney disease; N18.9 Chronic kidney disease, unspecified; I50.9 Heart failure, unspecified; E03.9 Hypothyroidism, unspecified; I45.10 Unspecified right bundle-branch block; K21.9 Gastro-esophageal reflux disease without esophagitis; R41.82 Altered mental status, unspecified; Z79.4 Long term (current) use of insulin; Z86.73 Personal history of transient ischemic attack (TIA), and cerebral infarction without residual deficits; Z87.891 Personal history of nicotine dependence
CPT/HCPCS: 36415; 52240; 74430; 82948; 88305; J0696; J2001; J2405; J2704; Q9967